=== PATIENT | male | born 1995 | race Asian ===

== ENCOUNTER 2021-12-24 21:48 | Inpatient (IN) | payer MEDICAID ==
[~2021-12-24] VITALS: Ht 152.4 cm; Wt 49.9 kg
[2021-12-24] MEDS ORDERED: IV NORMAL SALINE 500 ML BAG IV ONE (22:00)
[2021-12-24 22:18] LABS: HEMATOCRIT 36.3 % (36.7-47.1); MEAN CORPUSCULAR HEMOGLOBIN 30.7 uug (23.8-33.4); MEAN CORPUSCULAR VOLUME 90.1 fL (73.0-96.2); PLATELET COUNT (AUTO) 225 K/uL (152-348)
[2021-12-24 22:22] LABS: CARBON DIOXIDE 33 mmol/L (21-32); CHLORIDE 103 mmol/L (98-107); CREATININE 0.5 mg/dL (0.6-1.3); GLUCOSE 99 mg/dL (74-106); POTASSIUM 2.9 mmol/L (3.5-5.1); UREA NITROGEN, BLOOD 6 mg/dL (7-18)
[2021-12-24 22:36] LABS: ALANINE AMINOTRANSFERASE 110 U/L (16-63); ALKALINE PHOSPHATASE 73 U/L (50-136); ASPARTATE AMINOTRANSFERASE 70 U/L (15-37); BILIRUBIN,DIRECT 0.3 mg/dL (0.0-0.2); BILIRUBIN,TOTAL 0.8 mg/dL (0.2-1.0); TOTAL PROTEIN, SERUM 6.7 g/dL (6.4-8.2)
[2021-12-24] MEDS ORDERED: IV D5W-0.45% NS +20 KCL 1,000 ML IV ONE (23:00)
[2021-12-24] MEDS ORDERED: POLY17PO4 GT (23:37)
[2021-12-24] MEDS ORDERED: HYDR-501 GT (23:37)
[2021-12-24] MEDS ORDERED: PROM6.256 GT (23:37)
[2021-12-24] MEDS ORDERED: SUCR1ORA4 GT (23:37)
[2021-12-24] MEDS ORDERED: CLON2TAB11 GT (23:37)
[2021-12-24] MEDS ORDERED: GLYC2TAB2 GT (23:37)
[2021-12-24] MEDS ORDERED: OMEP40CA21 GT (23:37)
[2021-12-24] MEDS ORDERED: ALBU2.5V38 IH (23:37)
[2021-12-24] MEDS ORDERED: BACL20TA GT (23:37)
[2021-12-24] MEDS ORDERED: TIZA4TAB5 GT ×2 (23:37)
[2021-12-24] MEDS ORDERED: NYST15CR2 TP (23:37)
[2021-12-24] MEDS ORDERED: ACET-2154 GT (23:37)
[2021-12-24] MEDS ORDERED: LEVE500S9 GT (23:37)
[2021-12-24] MEDS ORDERED: ONDA8TAB65 GT (23:37)
[2021-12-25] MEDS ORDERED: REMEDY ESSENTIAL ZINC PASTE 113 GM TP PRN (00:30)
[2021-12-25] MEDS ORDERED: IV D5W-0.45% NS +20 KCL 1,000 ML IV ONE (00:31)
[2021-12-25] MEDS: IV NS 1000 ML 1,000 ML IV PRN ×2 (00:38→22:14)
[2021-12-25] MEDS ORDERED: MIDAZOLAM HCL 2 MG/2 ML VIAL ONE (08:43)
[2021-12-25] MEDS ORDERED: MIDAZOLAM HCL 2 MG/2 ML VIAL IV PRN (08:45)
[2021-12-25] MEDS ORDERED: PANTOPRAZOLE SODIUM 40 MG VIAL ONE (09:04)
[2021-12-25] MEDS: PANTOPRAZOLE SODIUM 40 MG VIAL IV SCH (09:09)
[2021-12-25] MEDS ORDERED: MORPHINE SULFATE 2 MG/1 ML DISP.SYRIN ONE ×2 (11:13→21:30)
[2021-12-25] MEDS: MORPHINE SULFATE 2 MG/1 ML DISP.SYRIN IV PRN ×2 (11:21→21:35)
[2021-12-25] MEDS ORDERED: LORAZEPAM 2 MG/1 ML VIAL ONE ×2 (11:23→12:55)
[2021-12-25] MEDS ORDERED: LORAZEPAM 2 MG/1 ML VIAL IV ONE (11:30)
[2021-12-25] MEDS ORDERED: BACLOFEN 20 MG TABLET PO SCH (12:45)
[2021-12-25] MEDS ORDERED: TIZANIDINE HCL 4 MG TABLET PO SCH (12:45)
[2021-12-25] MEDS ORDERED: TIZANIDINE HCL 4 MG TABLET PO PRN (12:49)
[2021-12-25] MEDS ORDERED: BACLOFEN 10 MG TABLET ONE ×2 (12:54→18:04)
[2021-12-25] MEDS: LORAZEPAM 2 MG/1 ML VIAL IV PRN ×2 (13:12→23:15)
[2021-12-25] MEDS ORDERED: BACLOFEN 20 MG TABLET GT SCH (18:00)
[2021-12-25] MEDS ORDERED: NYST15PO4 TP (18:07)
[2021-12-25] MEDS ORDERED: POTASSIUM CHLORIDE 50 ML ONE (18:29)
[2021-12-25] MEDS: POTASSIUM CHLORIDE 50 ML IV SCH ×4 (18:35→21:35)
[2021-12-25] MEDS ORDERED: POTASSIUM CHLORIDE 150 ML ONE (19:30)
[2021-12-25] MEDS ORDERED: levETIRAcetam 250 MG TABLET GT SCH (21:00)
[2021-12-25] MEDS: levETIRAcetam 500 MG/5 ML LIQUID UDC GT SCH (23:14)
[2021-12-26 00:01] VITALS: BP 139/78
[2021-12-26 01:16] VITALS: BP 120/62
[2021-12-26] MEDS: BACLOFEN 20 MG TABLET GT SCH ×5 (01:18→23:45)
[2021-12-26 05:33] VITALS: BP 136/68
[2021-12-26 07:12] LABS: HEMATOCRIT 36.9 % (36.7-47.1); MEAN CORPUSCULAR HEMOGLOBIN 31.2 uug (23.8-33.4); MEAN CORPUSCULAR VOLUME 91.6 fL (73.0-96.2); PLATELET COUNT (AUTO) 297 K/uL (152-348)
[2021-12-26 07:29] LABS: CARBON DIOXIDE 23 mmol/L (21-32); CHLORIDE 102 mmol/L (98-107); CREATINE KINASE, TOTAL 719 U/L (39-308); CREATININE 0.6 mg/dL (0.6-1.3); GLUCOSE 64 mg/dL (74-106); MAGNESIUM 2.1 mg/dL (1.8-2.4); PHOSPHOROUS 2.5 mg/dL (2.5-4.9); POTASSIUM 4.2 mmol/L (3.5-5.1); UREA NITROGEN, BLOOD 9 mg/dL (7-18)
[2021-12-26] MEDS: NYSTATIN CREAM 30 GM TUBE TP SCH ×3 (09:00→18:17)
[2021-12-26] MEDS ORDERED: NYSTATIN/TRIAMCINOLONE CREAM 15 GM TUBE TP SCH (09:00)
[2021-12-26] MEDS ORDERED: Medication Not On Formulary EA (Glycopyrrolate 1 MG) GT SCH (09:00)
[2021-12-26] MEDS: GLYCOPYRROLATE 1 MG TABLET GT SCH ×4 (10:38→18:17)
[2021-12-26] MEDS: MIRALAX 17 GM POWD.PACK GT SCH ×2 (10:39→18:15)
[2021-12-26] MEDS: PANTOPRAZOLE SODIUM 40 MG VIAL IV SCH ×2 (10:39→22:15)
[2021-12-26] MEDS: levETIRAcetam 500 MG/5 ML LIQUID UDC GT SCH ×2 (10:39→22:24)
[2021-12-26 12:21] VITALS: BP 119/72
[2021-12-26] MEDS: LORAZEPAM 1 MG TABLET GT PRN ×2 (13:33→22:02)
[2021-12-26 16:58] VITALS: BP 136/72
[2021-12-26] MEDS ORDERED: BACLOFEN 20 MG TABLET GT SCH (18:00)
[2021-12-26] MEDS: HYDROCODONE/APAP 5-325MG TABLET GT PRN (19:36)
[2021-12-26 20:00] VITALS: BP 135/83
[2021-12-26] MEDS: ONDANSETRON 4 MG/2 ML VIAL IV PRN ×2 (22:02→23:14)
[2021-12-26] MEDS: ACETAMINOPHEN 650 MG SUPP.RECT RC PRN (22:03)
[2021-12-26] MEDS ORDERED: ONDANSETRON 4 MG/2 ML VIAL IV STA (22:04)
[2021-12-26] MEDS ORDERED: MORPHINE SULFATE 2 MG/1 ML DISP.SYRIN IV STA (22:04)
[2021-12-26] MEDS ORDERED: BLOOD SUGAR DIAGNOSTIC 1 EACH STRIP VI STA (22:08)
[2021-12-26] MEDS: IV NS 1000 ML 1,000 ML IV PRN (22:30)
[2021-12-26 22:34] LABS: HEMATOCRIT 40.7 % (36.7-47.1); MEAN CORPUSCULAR VOLUME 91.7 fL (73.0-96.2); PLATELET COUNT (AUTO) 382 K/uL (152-348)
[2021-12-27 04:33] VITALS: BP 113/65
[2021-12-27] MEDS: BACLOFEN 20 MG TABLET GT SCH ×3 (05:06→17:49)
[2021-12-27] MEDS: MIRALAX 17 GM POWD.PACK GT SCH ×2 (08:49→17:50)
[2021-12-27] MEDS: levETIRAcetam 500 MG/5 ML LIQUID UDC GT SCH ×2 (08:49→20:34)
[2021-12-27] MEDS: NYSTATIN CREAM 30 GM TUBE TP SCH ×2 (08:50→17:49)
[2021-12-27] MEDS: GLYCOPYRROLATE 1 MG TABLET GT SCH ×3 (08:50→17:49)
[2021-12-27] MEDS: PANTOPRAZOLE SODIUM 40 MG VIAL IV SCH ×2 (08:50→17:49)
[2021-12-27 11:45] VITALS: BP 129/60
[2021-12-27] MEDS: IV NS 1000 ML 1,000 ML IV PRN (13:28)
[2021-12-27 16:43] VITALS: BP 107/88
[2021-12-27 20:00] VITALS: BP 109/58
[2021-12-27] MEDS: LORAZEPAM 1 MG TABLET GT PRN (20:34)
[2021-12-28] MEDS: BACLOFEN 20 MG TABLET GT SCH ×4 (00:04→17:31)
[2021-12-28] MEDS: LORAZEPAM 1 MG TABLET GT PRN ×2 (03:57→20:01)
[2021-12-28 04:00] VITALS: BP 125/68
[2021-12-28] MEDS: IV NS 1000 ML 1,000 ML IV PRN ×2 (04:07→18:56)
[2021-12-28] MEDS: TIZANIDINE HCL 4 MG TABLET GT PRN (06:27)
[2021-12-28 07:45] LABS: ALANINE AMINOTRANSFERASE 61 U/L (16-63); ALKALINE PHOSPHATASE 88 U/L (50-136); ASPARTATE AMINOTRANSFERASE 46 U/L (15-37); BILIRUBIN,TOTAL 0.7 mg/dL (0.2-1.0); CARBON DIOXIDE 28 mmol/L (21-32); CHLORIDE 101 mmol/L (98-107); CREATINE KINASE, TOTAL 763 U/L (39-308); CREATININE 0.6 mg/dL (0.6-1.3); GLUCOSE 127 mg/dL (74-106); LIPASE 155 U/L (73-393); MAGNESIUM 1.8 mg/dL (1.8-2.4); PHOSPHOROUS 2.6 mg/dL (2.5-4.9); POTASSIUM 3.9 mmol/L (3.5-5.1); TOTAL PROTEIN, SERUM 7.1 g/dL (6.4-8.2); UREA NITROGEN, BLOOD 5 mg/dL (7-18)
[2021-12-28 07:59] LABS: HEMATOCRIT 37.5 % (36.7-47.1); MEAN CORPUSCULAR HEMOGLOBIN 31.9 uug (23.8-33.4); MEAN CORPUSCULAR VOLUME 93.1 fL (73.0-96.2); PLATELET COUNT (AUTO) 366 K/uL (152-348)
[2021-12-28] MEDS: MIRALAX 17 GM POWD.PACK GT SCH ×2 (09:00→17:00)
[2021-12-28] MEDS: PANTOPRAZOLE SODIUM 40 MG VIAL IV SCH ×2 (09:29→17:30)
[2021-12-28] MEDS: NYSTATIN CREAM 30 GM TUBE TP SCH ×2 (09:29→17:31)
[2021-12-28] MEDS: GLYCOPYRROLATE 1 MG TABLET GT SCH ×3 (09:29→17:30)
[2021-12-28] MEDS: levETIRAcetam 500 MG/5 ML LIQUID UDC GT SCH ×2 (09:29→20:38)
[2021-12-28] MEDS: JEVITY 1.2 1000 ML LIQUID GT PRN (10:59)
[2021-12-28] MEDS: MORPHINE SULFATE 2 MG/1 ML DISP.SYRIN IV PRN (14:03)
[2021-12-28 16:00] VITALS: BP 101/59
[2021-12-28] MEDS: ALBUTEROL SULFATE 2.5 MG/3 ML NEBU NEB PRN (17:51)
[2021-12-28 20:03] VITALS: BP 132/69
[2021-12-28] MEDS: HYDROCODONE/APAP 5-325MG TABLET GT PRN (21:24)
[2021-12-29] MEDS: BACLOFEN 20 MG TABLET GT SCH ×4 (00:27→17:10)
[2021-12-29 04:03] VITALS: BP 135/75
[2021-12-29] MEDS: NYSTATIN CREAM 30 GM TUBE TP SCH ×2 (09:38→17:10)
[2021-12-29] MEDS: GLYCOPYRROLATE 1 MG TABLET GT SCH ×3 (09:38→17:09)
[2021-12-29] MEDS: levETIRAcetam 500 MG/5 ML LIQUID UDC GT SCH ×2 (09:38→20:41)
[2021-12-29] MEDS: MIRALAX 17 GM POWD.PACK GT SCH ×2 (09:38→17:09)
[2021-12-29] MEDS: PANTOPRAZOLE SODIUM 40 MG VIAL IV SCH ×2 (09:38→17:09)
[2021-12-29 11:54] VITALS: BP 149/94
[2021-12-29] MEDS: LORAZEPAM 1 MG TABLET GT PRN ×2 (12:00→20:16)
[2021-12-29] MEDS ORDERED: IOHEXOL 300MG/ML 100 ML INFUS..BTL ONE (15:30)
[2021-12-29] MEDS ORDERED: SWABABLE VALVE TRANSFER SET EA MC ONE (15:30)
[2021-12-29] MEDS ORDERED: IV NORMAL SALINE 250 ML BAG ONE (15:30)
[2021-12-29] MEDS ORDERED: BACL20TA GT (16:32)
[2021-12-29] MEDS ORDERED: METO25TA6 PO (16:32)
[2021-12-29] MEDS: METOPROLOL TARTRATE 25 MG TABLET PO SCH ×2 (17:16→23:00)
[2021-12-29 17:25] VITALS: BP 132/79
[2021-12-29] MEDS: HYDROCODONE/APAP 5-325MG TABLET GT PRN ×2 (18:12→22:29)
[2021-12-29] MEDS: ACETAMINOPHEN 650 MG SUPP.RECT RC PRN (18:43)
[2021-12-29 20:09] VITALS: BP 105/59
[2021-12-29] MEDS: PIPERACILLIN SODIUM/TAZOBACTAM 3.375 G in IV DEXTROSE 5% 50 ML IV SCH (21:00)
[2021-12-29] MEDS ORDERED: PIPERACILLIN/TAZOBACTAM/D5W 50 ML IV ONE ×2 (21:57→21:58)
[2021-12-30] VITALS (13 sets, daily range): BP systolic 57–140; BP diastolic 39–106
[2021-12-30] MEDS: ACETAMINOPHEN 650 MG SUPP.RECT RC PRN ×4 (00:47→21:18)
[2021-12-30] MEDS: BACLOFEN 20 MG TABLET GT SCH ×4 (00:47→16:48)
[2021-12-30] MEDS: MORPHINE SULFATE 2 MG/1 ML DISP.SYRIN IV PRN (02:50)
[2021-12-30] MEDS: PIPERACILLIN SODIUM/TAZOBACTAM 3.375 G in IV DEXTROSE 5% 50 ML IV SCH (03:57)
[2021-12-30] MEDS: IV NS 1000 ML 1,000 ML IV PRN (04:58)
[2021-12-30] MEDS: LORAZEPAM 1 MG TABLET GT PRN (04:59)
[2021-12-30 06:57] LABS: HEMATOCRIT 37.5 % (36.7-47.1); MEAN CORPUSCULAR HEMOGLOBIN 31.8 uug (23.8-33.4); MEAN CORPUSCULAR VOLUME 93.3 fL (73.0-96.2); PLATELET COUNT (AUTO) 448 K/uL (152-348)
[2021-12-30 07:13] LABS: BILIRUBIN,TOTAL 1.2 mg/dL (0.2-1.0); CREATININE 1.1 mg/dL (0.6-1.3); MAGNESIUM 1.8 mg/dL (1.8-2.4); PHOSPHOROUS 3.7 mg/dL (2.5-4.9); POTASSIUM 3.9 mmol/L (3.5-5.1); TOTAL PROTEIN, SERUM 7.6 g/dL (6.4-8.2)
[2021-12-30] MEDS: ALBUTEROL SULFATE 2.5 MG/3 ML NEBU NEB PRN (07:49)
[2021-12-30] MEDS ORDERED: PIPERACILLIN SODIUM/TAZOBACTAM 3.375 G in IV DEXTROSE 5% 50 ML IV SCH (09:00)
[2021-12-30] MEDS: METOPROLOL TARTRATE 25 MG TABLET PO SCH ×2 (09:00→21:00)
[2021-12-30] MEDS ORDERED: PIPERACILLIN SODIUM/TAZOBACTAM 3.375 G in IV DEXTROSE 5% 100 ML IV SCH (09:00)
[2021-12-30] MEDS: levETIRAcetam 500 MG/5 ML LIQUID UDC GT SCH ×2 (09:52→21:18)
[2021-12-30] MEDS: MIRALAX 17 GM POWD.PACK GT SCH ×2 (09:53→16:48)
[2021-12-30] MEDS: NYSTATIN CREAM 30 GM TUBE TP SCH ×2 (09:53→16:49)
[2021-12-30] MEDS: PANTOPRAZOLE SODIUM 40 MG VIAL IV SCH ×2 (09:53→16:48)
[2021-12-30] MEDS: GLYCOPYRROLATE 1 MG TABLET GT SCH ×3 (09:53→16:48)
[2021-12-30] MEDS ORDERED: IV NS 1000 ML 1,000 ML IV ONE ×3 (10:00→14:15)
[2021-12-30] MEDS ORDERED: ALBUTEROL SULFATE 2.5 MG/3 ML NEBU NEB PRN (10:30)
[2021-12-30 11:04] LABS: ABG BASE EXCESS -3.5 mmol/L; ABG HCO3 18.7 mmol/L; ABG PCO2 26.9 mmHg (35.0-45.0); ABG PH 7.459 (7.350-7.450); ABG PO2 96.8 mmHg (75.0-100.0); ABG SITE RIGHT RADIAL; VENT MODE Nasal Cannula
[2021-12-30] MEDS: DOXYCYCLINE HYCLATE IV 100 MG in IV DEXTROSE 5% 100 ML IV SCH ×2 (12:01→22:00)
[2021-12-30] MEDS: IBUPROFEN 400 MG TABLET PO PRN ×2 (12:01→17:50)
[2021-12-30] MEDS: PIPERACILLIN SODIUM/TAZOBACTAM 3.375 G in IV DEXTROSE 5% 100 ML IV SCH ×2 (12:03→21:19)
[2021-12-30] MEDS ORDERED: NOREPINEPHRINE BITARTRATE 8 MG in IV NORMAL SALINE 242 ML IV PRN (14:15)
[2021-12-30 14:38] LABS: *BILIRUBIN,URIN NEGATIVE (NEGATIVE); *BLOOD, URINE 2+ (NEGATIVE); *CLARITY,URINE CLEAR (CLEAR); *COLOR,URINE YELLOW (YELLOW); *KETONES,URINE 3+ (NEGATIVE); *UROBILINOGEN,URINE 0.2 E.U./dl (NORMAL); LEUKOCYTE ESTERASE ,URINE NEGATIVE (NEGATIVE); NITRITE, URINE NEGATIVE (NEGATIVE); PH,URINE 5.5 (5.0-8.0); UGLUCOSE NEGATIVE (NEGATIVE)
[2021-12-30] MEDS ORDERED: MORPHINE SULFATE 2 MG/1 ML DISP.SYRIN ONE (20:40)
[2021-12-30] MEDS ORDERED: ACETAMINOPHEN 650 MG SUPP.RECT RC ONE (21:16)
[2021-12-30] MEDS ORDERED: levETIRAcetam 500 MG/5 ML LIQUID UDC ONE (21:16)
[2021-12-30] MEDS ORDERED: PHENYLEPHRINE 10 MG/1 ML VIAL ONE (21:41)
[2021-12-30] MEDS: PHENYLEPHRINE IV 50 MG in IV NORMAL SALINE 245 ML IV PRN (22:09)
[2021-12-30 23:32] LABS: BACTERIA,URINE FEW /HPF (NONE SEEN); SQUAMOUS EPITHELIAL CELL,UR FEW /HPF (NONE SEEN); WBC,URINE 0-3 /HPF (0-3)
[2021-12-31] VITALS (89 sets, daily range): BP systolic 70–199; BP diastolic 33–128
[2021-12-31] MEDS: NOREPINEPHRINE BITARTRATE 8 MG in IV NORMAL SALINE 242 ML IV PRN ×2 (00:10→03:51)
[2021-12-31] MEDS ORDERED: LORAZEPAM 1 MG TABLET ONE (00:13)
[2021-12-31] MEDS ORDERED: IBUPROFEN 400 MG TABLET ONE ×4 (00:13→22:59)
[2021-12-31] MEDS: IBUPROFEN 400 MG TABLET PO PRN ×4 (00:15→23:00)
[2021-12-31] MEDS: LORAZEPAM 1 MG TABLET GT PRN (00:15)
[2021-12-31] MEDS: IV NS 1000 ML 1,000 ML IV PRN ×2 (00:16→14:33)
[2021-12-31] MEDS ORDERED: BACLOFEN 10 MG TABLET ONE ×4 (01:23→17:39)
[2021-12-31] MEDS ORDERED: ACETAMINOPHEN 650 MG SUPP.RECT RC ONE ×3 (03:13→19:50)
[2021-12-31] MEDS: ACETAMINOPHEN 650 MG SUPP.RECT RC PRN ×3 (03:16→19:53)
[2021-12-31] MEDS ORDERED: PHENYLEPHRINE 10 MG/1 ML VIAL ONE (03:35)
[2021-12-31] MEDS: PHENYLEPHRINE IV 50 MG in IV NORMAL SALINE 245 ML IV PRN (03:51)
[2021-12-31] MEDS: PIPERACILLIN SODIUM/TAZOBACTAM 3.375 G in IV DEXTROSE 5% 100 ML IV SCH ×3 (04:45→20:27)
[2021-12-31] MEDS ORDERED: MORPHINE SULFATE 2 MG/1 ML DISP.SYRIN ONE (05:46)
[2021-12-31] MEDS: MORPHINE SULFATE 2 MG/1 ML DISP.SYRIN IV PRN (05:52)
[2021-12-31] MEDS: BACLOFEN 20 MG TABLET GT SCH ×5 (06:00→23:01)
[2021-12-31 07:16] LABS: HEMATOCRIT 34.1 % (36.7-47.1); MEAN CORPUSCULAR HEMOGLOBIN 31.8 uug (23.8-33.4); MEAN CORPUSCULAR VOLUME 93.7 fL (73.0-96.2); PLATELET COUNT (AUTO) 412 K/uL (152-348)
[2021-12-31 07:56] LABS: CREATININE 0.9 mg/dL (0.6-1.3); MAGNESIUM 1.6 mg/dL (1.8-2.4); PHOSPHOROUS 2.8 mg/dL (2.5-4.9); POTASSIUM 3.3 mmol/L (3.5-5.1)
[2021-12-31] MEDS: MIRALAX 17 GM POWD.PACK GT SCH ×2 (09:00→17:43)
[2021-12-31] MEDS: METOPROLOL TARTRATE 25 MG TABLET PO SCH ×2 (09:00→20:27)
[2021-12-31] MEDS ORDERED: NOREPINEPHRINE BITARTRATE 32 MG in IV NORMAL SALINE 218 ML IV PRN (09:05)
[2021-12-31] MEDS ORDERED: POTASSIUM CHLORIDE 20 MEQ POWDER PACKET GT ONE (09:15)
[2021-12-31] MEDS ORDERED: SODIUM BICARBONATE 8.4% 50 MEQ/50 ML DISP.SYRIN IV ONE ×2 (09:30→09:33)
[2021-12-31] MEDS ORDERED: ENOXAPARIN SODIUM 40 MG/0.4 ML DISP.SYRIN SQ ONE (09:32)
[2021-12-31] MEDS ORDERED: PANTOPRAZOLE SODIUM 40 MG VIAL ONE ×2 (09:32→17:35)
[2021-12-31] MEDS ORDERED: levETIRAcetam 500 MG/5 ML LIQUID UDC ONE ×2 (09:32→20:34)
[2021-12-31] MEDS ORDERED: POTASSIUM CHLORIDE 20 MEQ POWDER PACKET ONE (09:33)
[2021-12-31] MEDS ORDERED: MAGNESIUM SULFATE/D5W 200 ML ONE (09:33)
[2021-12-31] MEDS ORDERED: LORAZEPAM 2 MG/1 ML VIAL ONE ×2 (09:34→19:51)
[2021-12-31] MEDS: LORAZEPAM 2 MG/1 ML VIAL IV PRN ×2 (09:41→19:53)
[2021-12-31] MEDS: MAGNESIUM SULFATE/D5W 100 ML IV SCH ×2 (09:41→11:12)
[2021-12-31] MEDS: GLYCOPYRROLATE 1 MG TABLET GT SCH ×3 (09:41→17:43)
[2021-12-31] MEDS: levETIRAcetam 500 MG/5 ML LIQUID UDC GT SCH ×2 (09:41→20:44)
[2021-12-31] MEDS: PANTOPRAZOLE SODIUM 40 MG VIAL IV SCH ×2 (09:41→17:43)
[2021-12-31] MEDS: ENOXAPARIN SODIUM 40 MG/0.4 ML DISP.SYRIN SQ SCH (09:44)
[2021-12-31] MEDS: DOXYCYCLINE HYCLATE IV 100 MG in IV DEXTROSE 5% 100 ML IV SCH ×2 (09:44→21:22)
[2021-12-31] MEDS: PHENYLEPHRINE IV 100 MG in IV NORMAL SALINE 240 ML IV PRN (11:16)
[2021-12-31] MEDS: NYSTATIN CREAM 30 GM TUBE TP SCH ×2 (12:01→17:43)
[2021-12-31] MEDS ORDERED: HYDROCODONE/APAP 5-325MG TABLET ONE ×2 (12:56→19:50)
[2021-12-31] MEDS: HYDROCODONE/APAP 5-325MG TABLET GT PRN ×2 (12:58→19:53)
[2021-12-31] MEDS: TIZANIDINE HCL 4 MG TABLET GT PRN ×2 (12:58→19:57)
[2021-12-31] MEDS ORDERED: MIRALAX 17 GM POWD.PACK ONE (17:35)
[2021-12-31] MEDS ORDERED: TIZANIDINE HCL 4 MG TABLET ONE (19:56)
[2021-12-31] MEDS ORDERED: ALBUTEROL SULFATE 2.5 MG/3 ML NEBU ONE (21:22)
[2021-12-31] MEDS: ALBUTEROL SULFATE 2.5 MG/3 ML NEBU NEB PRN (21:49)
[2022-01-01] VITALS (80 sets, daily range): BP systolic 77–136; BP diastolic 28–94
[2022-01-01] MEDS: PHENYLEPHRINE IV 100 MG in IV NORMAL SALINE 240 ML IV PRN (02:01)
[2022-01-01] MEDS: IV NS 1000 ML 1,000 ML IV PRN ×2 (02:58→21:26)
[2022-01-01] MEDS: PIPERACILLIN SODIUM/TAZOBACTAM 3.375 G in IV DEXTROSE 5% 100 ML IV SCH ×3 (03:03→20:06)
[2022-01-01] MEDS ORDERED: ALBUTEROL SULFATE 2.5 MG/3 ML NEBU ONE (03:47)
[2022-01-01] MEDS ORDERED: LORAZEPAM 2 MG/1 ML VIAL ONE ×2 (04:05→22:46)
[2022-01-01] MEDS ORDERED: HYDROCODONE/APAP 5-325MG TABLET ONE ×3 (04:06→19:04)
[2022-01-01] MEDS: HYDROCODONE/APAP 5-325MG TABLET GT PRN ×3 (04:08→19:10)
[2022-01-01] MEDS: LORAZEPAM 2 MG/1 ML VIAL IV PRN ×2 (04:08→22:51)
[2022-01-01] MEDS: ALBUTEROL SULFATE 2.5 MG/3 ML NEBU NEB PRN (04:39)
[2022-01-01] MEDS: BACLOFEN 20 MG TABLET GT SCH ×3 (05:09→17:31)
[2022-01-01 07:33] LABS: HEMATOCRIT 38.1 % (36.7-47.1); MEAN CORPUSCULAR HEMOGLOBIN 31.6 uug (23.8-33.4); MEAN CORPUSCULAR VOLUME 94.3 fL (73.0-96.2); PLATELET COUNT (AUTO) 383 K/uL (152-348)
[2022-01-01 07:53] LABS: CARBON DIOXIDE 26 mmol/L (21-32); CHLORIDE 104 mmol/L (98-107); CREATINE KINASE, TOTAL 4662 U/L (39-308); CREATININE 0.7 mg/dL (0.6-1.3); GLUCOSE 90 mg/dL (74-106); MAGNESIUM 2.1 mg/dL (1.8-2.4); POTASSIUM 3.6 mmol/L (3.5-5.1); UREA NITROGEN, BLOOD 3 mg/dL (7-18)
[2022-01-01] MEDS ORDERED: MIRALAX 17 GM POWD.PACK ONE (08:55)
[2022-01-01] MEDS ORDERED: ENOXAPARIN SODIUM 40 MG/0.4 ML DISP.SYRIN SQ ONE (08:55)
[2022-01-01] MEDS ORDERED: levETIRAcetam 500 MG/5 ML LIQUID UDC ONE ×3 (08:56→20:04)
[2022-01-01] MEDS ORDERED: PANTOPRAZOLE SODIUM 40 MG VIAL ONE ×2 (08:56→16:39)
[2022-01-01] MEDS: METOPROLOL TARTRATE 25 MG TABLET PO SCH ×3 (09:00→20:07)
[2022-01-01] MEDS: MIRALAX 17 GM POWD.PACK GT SCH ×2 (09:05→12:48)
[2022-01-01] MEDS: levETIRAcetam 500 MG/5 ML LIQUID UDC GT SCH ×2 (09:05→20:06)
[2022-01-01] MEDS: NYSTATIN CREAM 30 GM TUBE TP SCH ×2 (09:09→17:32)
[2022-01-01] MEDS: PANTOPRAZOLE SODIUM 40 MG VIAL IV SCH ×2 (09:12→17:32)
[2022-01-01] MEDS: GLYCOPYRROLATE 1 MG TABLET GT SCH ×3 (09:12→17:31)
[2022-01-01] MEDS: ENOXAPARIN SODIUM 40 MG/0.4 ML DISP.SYRIN SQ SCH (09:28)
[2022-01-01] MEDS ORDERED: LORAZEPAM 1 MG TABLET ONE ×2 (09:37→17:35)
[2022-01-01] MEDS: LORAZEPAM 1 MG TABLET GT PRN ×2 (09:39→17:35)
[2022-01-01] MEDS: DOXYCYCLINE HYCLATE IV 100 MG in IV DEXTROSE 5% 100 ML IV SCH ×2 (10:40→21:06)
[2022-01-01] MEDS ORDERED: BACLOFEN 10 MG TABLET ONE (12:11)
[2022-01-01] MEDS ORDERED: NEUTRA PHOS PACKET GT ONE (16:00)
[2022-01-01] MEDS ORDERED: ACETAMINOPHEN 650 MG SUPP.RECT RC ONE (22:14)
[2022-01-01] MEDS ORDERED: IBUPROFEN 400 MG TABLET ONE (22:14)
[2022-01-01] MEDS: IBUPROFEN 400 MG TABLET PO PRN (22:15)
[2022-01-01] MEDS: ACETAMINOPHEN 650 MG SUPP.RECT RC PRN (22:15)
[2022-01-02] VITALS (10 sets, daily range): BP systolic 102–143; BP diastolic 56–87
[2022-01-02] MEDS: BACLOFEN 20 MG TABLET GT SCH ×4 (00:02→17:32)
[2022-01-02] MEDS: PIPERACILLIN SODIUM/TAZOBACTAM 3.375 G in IV DEXTROSE 5% 100 ML IV SCH ×3 (04:33→20:21)
[2022-01-02] MEDS ORDERED: LORAZEPAM 2 MG/1 ML VIAL ONE (04:50)
[2022-01-02] MEDS: LORAZEPAM 2 MG/1 ML VIAL IV PRN ×2 (04:54→20:04)
[2022-01-02 05:15] LABS: ALANINE AMINOTRANSFERASE 89 U/L (16-63); ALKALINE PHOSPHATASE 52 U/L (50-136); ASPARTATE AMINOTRANSFERASE 147 U/L (15-37); BILIRUBIN,DIRECT 0.3 mg/dL (0.0-0.2); BILIRUBIN,TOTAL 1.2 mg/dL (0.2-1.0); CARBON DIOXIDE 34 mmol/L (21-32); CHLORIDE 102 mmol/L (98-107); CREATINE KINASE, TOTAL 2372 U/L (39-308); CREATININE 0.7 mg/dL (0.6-1.3); GLUCOSE 87 mg/dL (74-106); MAGNESIUM 1.9 mg/dL (1.8-2.4); PHOSPHOROUS 2.4 mg/dL (2.5-4.9); UREA NITROGEN, BLOOD 3 mg/dL (7-18)
[2022-01-02 06:37] LABS: HEMATOCRIT 34.2 % (36.7-47.1); MEAN CORPUSCULAR HEMOGLOBIN 31.7 uug (23.8-33.4); MEAN CORPUSCULAR VOLUME 93.1 fL (73.0-96.2); PLATELET COUNT (AUTO) 253 K/uL (152-348)
[2022-01-02] MEDS: ENOXAPARIN SODIUM 40 MG/0.4 ML DISP.SYRIN SQ SCH (09:00)
[2022-01-02] MEDS: GLYCOPYRROLATE 1 MG TABLET GT SCH ×3 (09:00→17:32)
[2022-01-02] MEDS: levETIRAcetam 500 MG/5 ML LIQUID UDC GT SCH ×2 (09:00→20:02)
[2022-01-02] MEDS: PANTOPRAZOLE SODIUM 40 MG VIAL IV SCH ×2 (09:00→17:32)
[2022-01-02] MEDS: NYSTATIN CREAM 30 GM TUBE TP SCH ×2 (09:00→17:00)
[2022-01-02] MEDS: MIRALAX 17 GM POWD.PACK GT SCH ×2 (09:00→17:00)
[2022-01-02] MEDS: METOPROLOL TARTRATE 25 MG TABLET PO SCH ×2 (09:00→20:02)
[2022-01-02] MEDS ORDERED: levETIRAcetam 500 MG/5 ML LIQUID UDC ONE (09:06)
[2022-01-02] MEDS ORDERED: PANTOPRAZOLE SODIUM 40 MG VIAL ONE (09:07)
[2022-01-02] MEDS ORDERED: MIRALAX 17 GM POWD.PACK ONE (09:07)
[2022-01-02] MEDS ORDERED: ENOXAPARIN SODIUM 40 MG/0.4 ML DISP.SYRIN SQ ONE (09:08)
[2022-01-02] MEDS ORDERED: POTASSIUM CHLORIDE 20 MEQ POWDER PACKET GT ONE ×2 (09:15→12:00)
[2022-01-02] MEDS ORDERED: BACLOFEN 10 MG TABLET ONE (09:55)
[2022-01-02] MEDS ORDERED: PIPERACILLIN/TAZOBACTAM/D5W 50 ML IV ONE (09:55)
[2022-01-02] MEDS ORDERED: LORAZEPAM 1 MG TABLET ONE (09:56)
[2022-01-02] MEDS: DOXYCYCLINE HYCLATE IV 100 MG in IV DEXTROSE 5% 100 ML IV SCH ×2 (10:29→22:38)
[2022-01-02] MEDS ORDERED: POTASSIUM CHLORIDE 20 MEQ POWDER PACKET ONE (10:36)
[2022-01-02] MEDS: LORAZEPAM 1 MG TABLET GT PRN (10:58)
[2022-01-02] MEDS: JEVITY 1.2 1000 ML LIQUID GT PRN (10:59)
[2022-01-02] MEDS ORDERED: NEUTRA PHOS PACKET GT ONE (16:00)
[2022-01-03 00:19] LABS: ABG BASE EXCESS -10.4 mmol/L; ABG HCO3 16.2 mmol/L; ABG PCO2 38.4 mmHg (35.0-45.0); ABG PH 7.243 (7.350-7.450); ABG PO2 91.2 mmHg (75.0-100.0); ABG SITE RIGHT RADIAL; ABG TOTAL HEMOGLOBIN 12.6 G/dL (13.5-18.0); COHb 0.3 % (0.5-1.5); MetHb 0.3 % (0.0-1.5); O2Hb 95.8 % (94.0-97.0); VENT MODE Nasal Cannula
[2022-01-03 00:21] VITALS: BP 112/65
[2022-01-03] MEDS: BACLOFEN 20 MG TABLET GT SCH ×5 (00:32→23:57)
[2022-01-03] MEDS: ACETAMINOPHEN 650 MG SUPP.RECT RC PRN (01:41)
[2022-01-03] MEDS: PIPERACILLIN SODIUM/TAZOBACTAM 3.375 G in IV DEXTROSE 5% 100 ML IV SCH ×3 (03:43→20:11)
[2022-01-03 04:45] VITALS: BP 122/68
[2022-01-03 07:47] LABS: CARBON DIOXIDE 38 mmol/L (21-32); CHLORIDE 101 mmol/L (98-107); CREATININE 0.5 mg/dL (0.6-1.3); GLUCOSE 149 mg/dL (74-106); UREA NITROGEN, BLOOD 4 mg/dL (7-18)
[2022-01-03 08:01] LABS: POTASSIUM 2.8 mmol/L (3.5-5.1)
[2022-01-03] MEDS ORDERED: POTASSIUM CHLORIDE 20 MEQ POWDER PACKET GT ONE (08:30)
[2022-01-03] MEDS: MIRALAX 17 GM POWD.PACK GT SCH ×2 (09:00→15:51)
[2022-01-03] MEDS: PANTOPRAZOLE SODIUM 40 MG VIAL IV SCH (09:25)
[2022-01-03] MEDS: METOPROLOL TARTRATE 25 MG TABLET PO SCH ×2 (09:26→20:12)
[2022-01-03] MEDS: GLYCOPYRROLATE 1 MG TABLET GT SCH ×3 (09:26→16:13)
[2022-01-03] MEDS: levETIRAcetam 500 MG/5 ML LIQUID UDC GT SCH ×2 (09:26→20:12)
[2022-01-03] MEDS: NYSTATIN CREAM 30 GM TUBE TP SCH ×2 (09:27→15:51)
[2022-01-03] MEDS: ENOXAPARIN SODIUM 40 MG/0.4 ML DISP.SYRIN SQ SCH (09:28)
[2022-01-03] MEDS: DOXYCYCLINE HYCLATE IV 100 MG in IV DEXTROSE 5% 100 ML IV SCH ×2 (09:30→21:05)
[2022-01-03 11:14] VITALS: BP 116/74
[2022-01-03] MEDS: JEVITY 1.2 1000 ML LIQUID GT PRN (12:14)
[2022-01-03 15:06] VITALS: BP 133/83
[2022-01-03] MEDS: LORAZEPAM 1 MG TABLET GT PRN (16:13)
[2022-01-03] MEDS: PANTOPRAZOLE ORAL SUSPENSION 40 MG SUSPDR.PKT GT SCH (17:16)
[2022-01-03] MEDS: IV NS 1000 ML 1,000 ML IV PRN (17:18)
[2022-01-03 20:00] VITALS: BP 119/68
[2022-01-03 20:18] VITALS: BP 119/68
[2022-01-03] MEDS: LORAZEPAM 2 MG/1 ML VIAL IV PRN (23:57)
[2022-01-04 00:19] VITALS: BP 155/74
[2022-01-04] MEDS: PIPERACILLIN SODIUM/TAZOBACTAM 3.375 G in IV DEXTROSE 5% 100 ML IV SCH ×3 (03:30→20:49)
[2022-01-04 04:00] VITALS: BP 115/84
[2022-01-04 04:18] VITALS: BP 115/84
[2022-01-04] MEDS: BACLOFEN 20 MG TABLET GT SCH ×4 (05:19→23:32)
[2022-01-04] MEDS: PANTOPRAZOLE ORAL SUSPENSION 40 MG SUSPDR.PKT GT SCH ×2 (05:20→17:47)
[2022-01-04] MEDS: IV NS 1000 ML 1,000 ML IV PRN (05:31)
[2022-01-04] MEDS: JEVITY 1.2 1000 ML LIQUID GT PRN ×2 (05:36→15:53)
[2022-01-04] MEDS: HYDROCODONE/APAP 5-325MG TABLET GT PRN ×3 (07:19→20:50)
[2022-01-04] MEDS: LORAZEPAM 1 MG TABLET GT PRN ×2 (07:19→15:59)
[2022-01-04 08:27] LABS: CARBON DIOXIDE 34 mmol/L (21-32); CHLORIDE 102 mmol/L (98-107); CREATININE 0.6 mg/dL (0.6-1.3); GLUCOSE 110 mg/dL (74-106); POTASSIUM 3.5 mmol/L (3.5-5.1); UREA NITROGEN, BLOOD 7 mg/dL (7-18)
[2022-01-04] MEDS: MIRALAX 17 GM POWD.PACK GT SCH ×2 (09:00→15:45)
[2022-01-04] MEDS: levETIRAcetam 500 MG/5 ML LIQUID UDC GT SCH ×2 (09:01→20:50)
[2022-01-04] MEDS: GLYCOPYRROLATE 1 MG TABLET GT SCH ×3 (09:02→15:59)
[2022-01-04] MEDS: ENOXAPARIN SODIUM 40 MG/0.4 ML DISP.SYRIN SQ SCH (09:02)
[2022-01-04] MEDS: NYSTATIN CREAM 30 GM TUBE TP SCH ×2 (09:02→15:46)
[2022-01-04] MEDS: METOPROLOL TARTRATE 25 MG TABLET PO SCH ×2 (09:03→20:50)
[2022-01-04] MEDS: DOXYCYCLINE HYCLATE IV 100 MG in IV DEXTROSE 5% 100 ML IV SCH ×2 (09:06→22:07)
[2022-01-04 11:37] VITALS: BP 112/71
[2022-01-04 15:39] VITALS: BP 111/66
[2022-01-04 20:20] VITALS: BP 122/69
[2022-01-04] MEDS: MORPHINE SULFATE 2 MG/1 ML DISP.SYRIN IV PRN (20:49)
[2022-01-04] MEDS: TIZANIDINE HCL 4 MG TABLET GT PRN (20:51)
[2022-01-04] MEDS: LORAZEPAM 2 MG/1 ML VIAL IV PRN (23:32)
[2022-01-05] MEDS: IV NS 1000 ML 1,000 ML IV PRN (01:18)
[2022-01-05] MEDS: IBUPROFEN 400 MG TABLET PO PRN (02:25)
[2022-01-05] MEDS: LORAZEPAM 1 MG TABLET GT PRN (02:25)
[2022-01-05] MEDS: PIPERACILLIN SODIUM/TAZOBACTAM 3.375 G in IV DEXTROSE 5% 100 ML IV SCH ×3 (04:05→19:52)
[2022-01-05 04:26] VITALS: BP 118/60
[2022-01-05] MEDS: BACLOFEN 20 MG TABLET GT SCH ×4 (05:38→23:13)
[2022-01-05] MEDS: PANTOPRAZOLE ORAL SUSPENSION 40 MG SUSPDR.PKT GT SCH ×2 (05:38→17:41)
[2022-01-05] MEDS: METOPROLOL TARTRATE 25 MG TABLET PO SCH ×2 (08:55→20:23)
[2022-01-05] MEDS: MIRALAX 17 GM POWD.PACK GT SCH ×2 (08:55→17:37)
[2022-01-05] MEDS: levETIRAcetam 500 MG/5 ML LIQUID UDC GT SCH ×2 (08:55→20:22)
[2022-01-05] MEDS: GLYCOPYRROLATE 1 MG TABLET GT SCH ×3 (08:55→17:37)
[2022-01-05] MEDS: ENOXAPARIN SODIUM 40 MG/0.4 ML DISP.SYRIN SQ SCH (08:57)
[2022-01-05] MEDS: NYSTATIN CREAM 30 GM TUBE TP SCH ×2 (09:00→17:38)
[2022-01-05] MEDS: DOXYCYCLINE HYCLATE IV 100 MG in IV DEXTROSE 5% 100 ML IV SCH ×2 (09:36→21:09)
[2022-01-05 11:31] VITALS: BP 137/77
[2022-01-05] MEDS: LORAZEPAM 2 MG/1 ML VIAL IV PRN ×3 (11:31→19:51)
[2022-01-05] MEDS ORDERED: IV NORMAL SALINE 500 ML IV ONE ×2 (11:45→11:55)
[2022-01-05] MEDS: ACETAMINOPHEN 650 MG SUPP.RECT RC PRN (11:52)
[2022-01-05] MEDS: JEVITY 1.2 1000 ML LIQUID GT PRN (11:52)
[2022-01-05] MEDS: HYDROCODONE/APAP 5-325MG TABLET GT PRN (15:28)
[2022-01-05] MEDS: TIZANIDINE HCL 4 MG TABLET GT PRN (15:29)
[2022-01-05 15:42] VITALS: BP 126/78
[2022-01-05] MEDS: ALBUTEROL SULFATE 2.5 MG/3 ML NEBU NEB PRN (19:43)
[2022-01-05 20:27] VITALS: BP 127/58
[2022-01-06] MEDS: PIPERACILLIN SODIUM/TAZOBACTAM 3.375 G in IV DEXTROSE 5% 100 ML IV SCH ×2 (03:07→12:20)
[2022-01-06] MEDS: LORAZEPAM 2 MG/1 ML VIAL IV PRN ×2 (03:42→11:55)
[2022-01-06] MEDS: JEVITY 1.2 1000 ML LIQUID GT PRN (03:50)
[2022-01-06] MEDS: IV NS 1000 ML 1,000 ML IV PRN (03:55)
[2022-01-06 04:40] VITALS: BP 146/83
[2022-01-06] MEDS: PANTOPRAZOLE ORAL SUSPENSION 40 MG SUSPDR.PKT GT SCH (05:11)
[2022-01-06] MEDS: BACLOFEN 20 MG TABLET GT SCH ×2 (05:11→11:52)
[2022-01-06] MEDS: MIRALAX 17 GM POWD.PACK GT SCH (08:14)
[2022-01-06] MEDS: levETIRAcetam 500 MG/5 ML LIQUID UDC GT SCH (08:14)
[2022-01-06] MEDS: ENOXAPARIN SODIUM 40 MG/0.4 ML DISP.SYRIN SQ SCH (08:15)
[2022-01-06] MEDS: GLYCOPYRROLATE 1 MG TABLET GT SCH ×3 (08:33→16:49)
[2022-01-06] MEDS: METOPROLOL TARTRATE 25 MG TABLET PO SCH (08:33)
[2022-01-06] MEDS: NYSTATIN CREAM 30 GM TUBE TP SCH (09:40)
[2022-01-06] MEDS: DOXYCYCLINE HYCLATE IV 100 MG in IV DEXTROSE 5% 100 ML IV SCH (10:28)
[2022-01-06 11:33] VITALS: BP 123/76
[2022-01-06 16:00] VITALS: BP 119/80
[2022-01-06] MEDS: ACETAMINOPHEN 650 MG SUPP.RECT RC PRN (16:31)
[2022-01-06] MEDS ORDERED: LORAZEPAM 2 MG/1 ML VIAL ONE ×2 (18:00→18:15)
[2022-01-08] MEDS ORDERED: CEFEPIME HCL 1 G VIAL ONE (22:50)
[2022-01-12] MEDS ORDERED: LACT-209 GT (09:03)
[2022-01-12] MEDS ORDERED: METR500T GT (09:03)
== END 2022-01-06 17:05 | DRG 720 ==
LOC: ER 21:52 → TRANSITION 12-25 00:35 → TELE3 12-25 21:46 → MEDSURG3 12-26 09:26 → TELE-TD3 12-30 08:05 → TRANSITION 12-30 18:55 → TELE3 01-02 15:37 → MEDSURG3 01-04 09:30
PROVIDERS: ADMIT Internal Medicine; ATTEND Internal Medicine
PROC: B546ZZA Ultrasonography of Right Subclavian Vein, Guidance (ICD-10-PCS; principal; 2021-12-26)
PROC: 05H533Z Insertion of Infusion Device into Right Subclavian Vein, Percutaneous Approach (ICD-10-PCS; principal; 2021-12-26)
PROC: 05H533Z Insertion of Infusion Device into Right Subclavian Vein, Percutaneous Approach (ICD-10-PCS; 2021-12-30)
PROC: B546ZZA Ultrasonography of Right Subclavian Vein, Guidance (ICD-10-PCS; 2021-12-30)
DX: A41.9 Sepsis, unspecified organism (principal); J96.01 Acute respiratory failure with hypoxia; R65.21 Severe sepsis with septic shock; J69.0 Pneumonitis due to inhalation of food and vomit; G93.40 Encephalopathy, unspecified; N17.9 Acute kidney failure, unspecified; D64.9 Anemia, unspecified; B36.9 Superficial mycosis, unspecified; R53.2 Functional quadriplegia; E87.6 Hypokalemia; I10 Essential (primary) hypertension; M62.82 Rhabdomyolysis; Z93.1 Gastrostomy status; G40.909 Epilepsy, unspecified, not intractable, without status epilepticus; R74.01 Elevation of levels of liver transaminase levels; K21.9 Gastro-esophageal reflux disease without esophagitis; M24.571 Contracture, right ankle; M24.572 Contracture, left ankle; R13.10 Dysphagia, unspecified; Z66 Do not resuscitate; Z88.1 Allergy status to other antibiotic agents; K44.9 Diaphragmatic hernia without obstruction or gangrene
CPT/HCPCS: 36415; 36600; 70450; 71045; 71275; 83605; 83690; 83735; 84100; 84484; 85025; 85730; 87040; 87070; 87086; 93005; 94640; 94664; A4663; C9113; G0378; J0692; J1650; J2060; J2250; J2270; J2370; J2405; J2543; J3475; J3480; J3490; J7040; J7050; Q9967

== ENCOUNTER 2022-01-06 18:03 | Inpatient (IN) | payer MEDICAID ==
[~2022-01-06] VITALS: Ht 152.4 cm; Wt 49.9 kg
[~2022-01-06 18:03] MED LIST: ACET-2154 GT; ALBU2.5V38 IH; BACL20TA GT; CLON2TAB11 GT; GLYC2TAB2 GT; HYDR-501 GT; LEVE500S9 GT; METO25TA6 PO; NYST15PO4 TP; OMEP40CA21 GT; ONDA8TAB65 GT; POLY17PO4 GT; PROM6.256 GT; SUCR1ORA4 GT; TIZA4TAB5 GT
[2022-01-06] MEDS ORDERED: LORAZEPAM 2 MG/1 ML VIAL IV ONE ×3 (18:15→23:30)
--- NOTE | 2022-01-06 19:03 | NUR ---
Pt has a lot of severe anxiety history. Endorsed Ativan orders to [facility].
[2022-01-06 19:21] LABS: HEMATOCRIT 32.7 % (36.7-47.1); MEAN CORPUSCULAR HEMOGLOBIN 31.2 uug (23.8-33.4); MEAN CORPUSCULAR VOLUME 95.7 fL (73.0-96.2); PLATELET COUNT (AUTO) 258 K/uL (152-348)
[2022-01-06 19:36] LABS: ALANINE AMINOTRANSFERASE 77 U/L (16-63); ALKALINE PHOSPHATASE 68 U/L (50-136); ASPARTATE AMINOTRANSFERASE 66 U/L (15-37); BILIRUBIN,DIRECT 0.1 mg/dL (0.0-0.2); BILIRUBIN,TOTAL 0.9 mg/dL (0.2-1.0); CARBON DIOXIDE 32 mmol/L (21-32); CHLORIDE 100 mmol/L (98-107); CREATININE 0.9 mg/dL (0.6-1.3); GLUCOSE 136 mg/dL (74-106); TOTAL PROTEIN, SERUM 7.7 g/dL (6.4-8.2); UREA NITROGEN, BLOOD 12 mg/dL (7-18)
--- NOTE | 2022-01-06 19:40 | NUR ---
report to Rach REYES
[2022-01-06] MEDS ORDERED: IV NS 1000 ML 1,000 ML IV ONE (19:45)
[2022-01-06] MEDS ORDERED: ACETAMINOPHEN 650 MG SUPP.RECT RC ONE ×2 (19:45→20:12)
[2022-01-06] MEDS ORDERED: CEFEPIME HCL 2 G in IV DEXTROSE 5% 100 ML IV ONE (19:45)
[2022-01-06] MEDS ORDERED: CEFEPIME HCL 1 G VIAL ONE ×2 (20:12→20:13)
--- NOTE | 2022-01-06 20:33 | NUR ---
IVF AND ABT INFUSING AND TYLENOL SUPP 650 MG CO ADM.
--- NOTE | 2022-01-06 22:32 | NUR ---
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
--- NOTE | 2022-01-06 22:55 | NUR ---
Dr Richard spoke with Dr Keenan who accept patient.
[2022-01-06] MEDS ORDERED: IV NORMAL SALINE 500 ML IV ONE (23:15)
[2022-01-06] MEDS ORDERED: METOPROLOL TARTRATE 50 MG TABLET GT ONE (23:15)
[2022-01-06] MEDS ORDERED: LORAZEPAM 2 MG/1 ML VIAL ONE (23:24)
--- NOTE | 2022-01-06 23:30 | NUR ---
AGITATED, MED WITH ATIVAN 1 MG AND NEW ADMIT ORDERS NOTED, IVF NS 500 ML BOLUS AND LOPRESSOR GIVEN.
--- NOTE | 2022-01-07 | NUR ---
REPORT GIVEN TO RN ASSUMING CARE, PATIENT ADMITTED, LOPRESSOR NOT GIVEN, PER RN WILL GIVE ON UNIT.
--- NOTE | 2022-01-07 00:10 | NUR ---
Patient transfered to 3rd floor via hospital bed
--- NOTE | 2022-01-07 00:20 | NUR ---
ADMITTED THIS 26 Y.O.MALE WITH CEREBRAL PALSY AND QUAD, HE IS VERY RESTLESS AND AGITATED.OXYGEN [id number]% VIA NON REBREATHER MASK, VITAL SIGNS TAKEN AND RECORDED, REPOSITIONED FOR COMFORT, GT TUBE IN PLACE AND PATENT, SKIN WARM .ADMISSION ORDERS CARRIED OUT, .
[2022-01-07] MEDS: METRONIDAZOLE 500 MG/NS 100ML 500 MG in PREMIXED 1 EACH IV SCH ×4 (01:00→21:14)
[2022-01-07] MEDS ORDERED: CEFEPIME HCL 1 G VIAL ONE (01:20)
[2022-01-07] MEDS: BACLOFEN 20 MG TABLET GT SCH ×5 (02:28→23:40)
[2022-01-07] MEDS: CLONAZEPAM 1 MG TABLET GT SCH ×4 (02:30→17:39)
[2022-01-07] MEDS: TIZANIDINE HCL 4 MG TABLET GT PRN (02:32)
[2022-01-07] MEDS: ACETAMINOPHEN 650 MG/20.3 ML LIQUID UDC GT PRN ×3 (02:34→23:39)
[2022-01-07] MEDS: IV NS 1000 ML 1,000 ML IV PRN ×2 (02:36→20:14)
[2022-01-07] MEDS: MORPHINE SULFATE 2 MG/1 ML DISP.SYRIN IV PRN ×2 (02:46→10:12)
[2022-01-07 04:00] VITALS: BP 113/65
--- NOTE | 2022-01-07 05:13 | NUR ---
DETENTION ASSESSMENT DONE, DANIEL CATH DRAINING WELL TO KRYSTYNA URINE, FOR CT ABDOMEN W/O CONTRAST,PT REMAINS NON VERBAL, HE IS DNR/DNI.CONTINUES TO THRASH IN BED,VERY SPASTIC, DUE MEDS GIVEN VIA G TUBE AND TOLERARED IT WELL. TEMP OF UNKNOWN ORIGIN, STILL AT 100.3, ICE PACKS APPLIED TO GROIN AND AND AXILLARY AREAS.TYLENOL GIVEN VIA G TUBE.SOFT RESTRAINTS ON LEFT HAND, CONSTANTLY TRING TO REMOVE OXYGEN AND IV TUBINGS.
--- NOTE | 2022-01-07 05:24 | NUR ---
AM CARE RENDERED,MONITORED FOR SAFETY, ON TELE 112. SLEPT ON AND OFF. KEPT DRY AND CLEAN.
[2022-01-07] MEDS: CEFEPIME HCL 1 G in IV DEXTROSE 5% 50 ML IV SCH ×3 (06:00→21:15)
[2022-01-07 07:19] LABS: HEMATOCRIT 35.4 % (36.7-47.1); MEAN CORPUSCULAR HEMOGLOBIN 31.8 uug (23.8-33.4); MEAN CORPUSCULAR VOLUME 95.4 fL (73.0-96.2); PLATELET COUNT (AUTO) 326 K/uL (152-348)
[2022-01-07 07:24] LABS: BILIRUBIN,TOTAL 0.9 mg/dL (0.2-1.0); CREATININE 0.9 mg/dL (0.6-1.3); PHOSPHOROUS 2.2 mg/dL (2.5-4.9); POTASSIUM 3.5 mmol/L (3.5-5.1)
[2022-01-07 07:26] LABS: *BILIRUBIN,URIN NEGATIVE (NEGATIVE); *BLOOD, URINE NEGATIVE (NEGATIVE); *CLARITY,URINE CLEAR (CLEAR); *COLOR,URINE YELLOW (YELLOW); *KETONES,URINE 3+ (NEGATIVE); *UROBILINOGEN,URINE 0.2 E.U./dl (NORMAL); LEUKOCYTE ESTERASE ,URINE NEGATIVE (NEGATIVE); NITRITE, URINE NEGATIVE (NEGATIVE); PH,URINE 5.5 (5.0-8.0); UGLUCOSE NEGATIVE (NEGATIVE)
--- NOTE | 2022-01-07 08:00 | NUR ---
Patient received in bed, thrashing. Patient is non verbal on non rebreather mask at 15 L O2. LEft jugular #[address], running IV ABX, downstream occlusion noted. Unable to flush line due to resistance. Patient is a hard stick and will need midline . GT in place, patent and intact. No GT feeding at this time. patient is contracted to both upper and lower extremities. Patient noted to be diaphoretic, per night order selector patent is febrile, blood cultures have been collected by lab. Bilateral soft wrist restraints removed, skin is intact, patient tolerates restraints. Safety measures initiated.
[2022-01-07] MEDS: hydrOXYzine HCL 25 MG TABLET GT SCH ×3 (08:30→17:39)
[2022-01-07] MEDS: levETIRAcetam 500 MG/5 ML LIQUID UDC GT SCH ×2 (08:30→17:40)
--- NOTE | 2022-01-07 08:40 | NUR ---
Bed bath provided and cooling measures initiated, patient has a temp of 104 and is in distress. O2 sats are 100% on non rebreather mask at 15L O2. Noted with grunting with breaths. Patient medication administered including Tylenol for fever control. Dr. Brown at bedside, made aware of patient status including elevated temp. Dr. Simmons also at bedside.
[2022-01-07] MEDS ORDERED: IV NORMAL SALINE 250 ML IV ONE (09:38)
[2022-01-07] MEDS ORDERED: SWABABLE VALVE TRANSFER SET EA MC ONE (09:38)
[2022-01-07] MEDS ORDERED: IOHEXOL 350 100 ML INFUS..BTL ONE (09:39)
[2022-01-07] MEDS: GLYCOPYRROLATE 1 MG TABLET GT SCH ×3 (10:11→17:39)
[2022-01-07] MEDS: NYSTATIN POWDER 15 GM BOTTLE TP SCH ×2 (10:11→17:39)
[2022-01-07] MEDS: MIRALAX 17 GM POWD.PACK GT SCH ×2 (10:12→17:39)
--- NOTE | 2022-01-07 10:12 | NUR ---
Morphine IV pulled from [facility] earlier today but provided till now due to there being no IV access.
--- NOTE | 2022-01-07 11:00 | NUR ---
Left jugular IV is non patent, line removed and noted to be pulled and kicked. Able to dress site without any bleeding from site, light pressure provided to site. Midline orders received and midline nurse able to start line to left upper arm. Site secured with coban. patient tolerated procedure well.
[2022-01-07 11:50] VITALS: BP 94/52
--- NOTE | 2022-01-07 13:45 | NUR ---
Patient taken to CT of ABD/ pelvis with contrast. Mother, April, provided telephone consent, 2 nurse verification use completed for telephone consent.
--- NOTE | 2022-01-07 15:00 | NUR ---
Patient returned from CT, Flagyl and Maxepine will be late administered due to patient being out of unit. Patient tolerated CT well.
[2022-01-07 15:50] VITALS: BP 111/60
[2022-01-07] MEDS ORDERED: NEUTRA PHOS PACKET GT ONE ×2 (16:00→18:00)
--- NOTE | 2022-01-07 18:35 | NUR ---
Patient sleeping intermittently, telemetry is improving and HR in the 80's during this shift. Patient HR is back to 90-100 at this time. Patient temperature improved and is now afebrile. Cooling measures effective as well as Tylenol. Suctioning provided to clear airway, thick white secretions noted.
[2022-01-07 20:00] VITALS: BP 120/74
--- NOTE | 2022-01-07 20:00 | NUR ---
patient in bed sleeping , no s/s of respiratory distress , breathing even and unlabored , f/c to bsd and ivf in progress via the left midline .
[2022-01-07] MEDS: TIZANIDINE HCL 4 MG TABLET GT SCH (20:39)
--- NOTE | 2022-01-07 23:48 | NUR ---
Tylenol given via the peg c/o temp 101.4 F rectally .
[2022-01-08 04:32] VITALS: BP 92/40
[2022-01-08] MEDS: CEFEPIME HCL 1 G in IV DEXTROSE 5% 50 ML IV SCH ×3 (05:57→22:00)
[2022-01-08] MEDS: TIZANIDINE HCL 4 MG TABLET GT PRN ×2 (05:57→13:28)
[2022-01-08] MEDS: BACLOFEN 20 MG TABLET GT SCH ×3 (05:57→17:43)
[2022-01-08] MEDS: METRONIDAZOLE 500 MG/NS 100ML 500 MG in PREMIXED 1 EACH IV SCH (05:58)
[2022-01-08 08:12] LABS: ALANINE AMINOTRANSFERASE 43 U/L (16-63); ALKALINE PHOSPHATASE 36 U/L (50-136); ASPARTATE AMINOTRANSFERASE 45 U/L (15-37); BILIRUBIN,DIRECT 0.1 mg/dL (0.0-0.2); BILIRUBIN,TOTAL 0.5 mg/dL (0.2-1.0); CARBON DIOXIDE 26 mmol/L (21-32); CHLORIDE 108 mmol/L (98-107); CREATINE KINASE, TOTAL 300 U/L (39-308); CREATININE 0.6 mg/dL (0.6-1.3); GLUCOSE 104 mg/dL (74-106); MAGNESIUM 2.1 mg/dL (1.8-2.4); PHOSPHOROUS 2.6 mg/dL (2.5-4.9); POTASSIUM 3.3 mmol/L (3.5-5.1); TOTAL PROTEIN, SERUM 4.7 g/dL (6.4-8.2); UREA NITROGEN, BLOOD 15 mg/dL (7-18)
[2022-01-08] MEDS: levETIRAcetam 500 MG/5 ML LIQUID UDC GT SCH ×2 (08:22→17:43)
[2022-01-08] MEDS: MIRALAX 17 GM POWD.PACK GT SCH ×2 (08:23→15:30)
[2022-01-08] MEDS: CLONAZEPAM 1 MG TABLET GT SCH ×3 (08:23→17:43)
[2022-01-08] MEDS: hydrOXYzine HCL 25 MG TABLET GT SCH ×3 (08:23→17:43)
[2022-01-08] MEDS: NYSTATIN POWDER 15 GM BOTTLE TP SCH ×2 (08:24→15:31)
[2022-01-08] MEDS: IV NS 1000 ML 1,000 ML IV PRN (08:24)
[2022-01-08] MEDS: GLYCOPYRROLATE 1 MG TABLET GT SCH ×3 (08:26→17:47)
--- NOTE | 2022-01-08 08:29 | NUR ---
SEEN BY DR MELO FOR FOLLOW-UP, SEE NOTES
[2022-01-08 08:32] LABS: HEMATOCRIT 27.2 % (36.7-47.1); MEAN CORPUSCULAR VOLUME 97.4 fL (73.0-96.2); PLATELET COUNT (AUTO) 179 K/uL (152-348)
[2022-01-08] MEDS ORDERED: POTASSIUM CHLORIDE 20 MEQ POWDER PACKET GT ONE (10:00)
[2022-01-08 12:00] VITALS: BP 106/55
--- NOTE | 2022-01-08 12:20 | NUR ---
COMPLETE BED BATH GIVEN, TEMP 99.0 RECTALLY, REQUIRES FREQUENT ORAL SUCTIONING. GOOD ORAL CARE DONE FOR MINIMAL THIN ORAL SECRETION
[2022-01-08] MEDS: METRONIDAZOLE 500 MG TABLET GT SCH ×2 (13:15→21:11)
--- NOTE | 2022-01-08 15:35 | NUR ---
NO ACUTE CHANGE FROM MORNING ASSESSMENTS. ST ON MONITOR 105-110
[2022-01-08 16:00] VITALS: BP 98/46
[2022-01-08 20:12] VITALS: BP 100/53
--- NOTE | 2022-01-08 21:00 | NUR ---
RECEIVED REPORT FROM AM NURSE SADIE PT IS ALERT AND IS DNR DNI PT IS CONTRACTED IN BOTH UPPER AND LOWER EXTREMIES PT HAS HAD TEMPERATURE PT HASN'T HAD A STOOL FOR PT IS NPO WITH DANIEL DRAINING CLEAR YELLOW URINE PT HAS A LEFT HAND MITTEN TOLERATING WELL. PT HAS A HX OF ANXIETY,KCT ABD AND CERBRAL PALSY.
[2022-01-08] MEDS: TIZANIDINE HCL 4 MG TABLET GT SCH (21:12)
[2022-01-08] MEDS: MORPHINE SULFATE 2 MG/1 ML DISP.SYRIN IV PRN (21:19)
[2022-01-08] MEDS ORDERED: METRONIDAZOLE 500 MG TABLET GT SCH (22:00)
[2022-01-09] VITALS: BP 103/57
[2022-01-09] MEDS: MORPHINE SULFATE 2 MG/1 ML DISP.SYRIN IV PRN (03:23)
[2022-01-09] MEDS: IV NS 1000 ML 1,000 ML IV PRN ×2 (03:43→09:32)
[2022-01-09 04:00] VITALS: BP 125/60
--- NOTE | 2022-01-09 05:39 | NUR ---
NO CHANGES WITH PATIENT THROUGHOUT SHIFT WAS GIVEN MORPHNE FOR PAIN.
[2022-01-09] MEDS: BACLOFEN 20 MG TABLET GT SCH ×4 (06:24→17:10)
[2022-01-09] MEDS: METRONIDAZOLE 500 MG TABLET GT SCH ×3 (06:24→22:14)
[2022-01-09] MEDS: TIZANIDINE HCL 4 MG TABLET GT PRN ×2 (06:25→12:42)
[2022-01-09 07:29] LABS: HEMATOCRIT 31.7 % (36.7-47.1); MEAN CORPUSCULAR HEMOGLOBIN 32.8 uug (23.8-33.4); MEAN CORPUSCULAR VOLUME 96.4 fL (73.0-96.2); PLATELET COUNT (AUTO) 262 K/uL (152-348)
[2022-01-09 07:33] LABS: CARBON DIOXIDE 26 mmol/L (21-32); CHLORIDE 104 mmol/L (98-107); CREATININE 0.6 mg/dL (0.6-1.3); GLUCOSE 79 mg/dL (74-106); MAGNESIUM 1.9 mg/dL (1.8-2.4); PHOSPHOROUS 1.3 mg/dL (2.5-4.9); POTASSIUM 3.6 mmol/L (3.5-5.1); UREA NITROGEN, BLOOD 6 mg/dL (7-18)
[2022-01-09] MEDS: CEFEPIME HCL 1 G in IV DEXTROSE 5% 50 ML IV SCH ×3 (08:06→22:12)
[2022-01-09] MEDS: levETIRAcetam 500 MG/5 ML LIQUID UDC GT SCH ×2 (08:45→17:09)
[2022-01-09] MEDS: hydrOXYzine HCL 25 MG TABLET GT SCH ×3 (08:45→17:09)
[2022-01-09] MEDS: CLONAZEPAM 1 MG TABLET GT SCH ×3 (08:46→17:10)
[2022-01-09] MEDS: MIRALAX 17 GM POWD.PACK GT SCH ×2 (08:46→15:47)
[2022-01-09] MEDS: NYSTATIN POWDER 15 GM BOTTLE TP SCH ×2 (08:47→15:47)
[2022-01-09] MEDS: GLYCOPYRROLATE 1 MG TABLET GT SCH ×3 (08:49→17:10)
--- NOTE | 2022-01-09 09:30 | NUR ---
SEEN BY DR ALVAREZ FOR FOLLOW-UP SEE NOTES. TEMP 100.3 RECTALLY. COOLING MEASURES DONE
[2022-01-09 11:08] VITALS: BP 108/89
[2022-01-09 14:52] VITALS: BP 95/41
[2022-01-09] MEDS: JEVITY 1.2 1000 ML LIQUID GT PRN (15:11)
[2022-01-09] MEDS ORDERED: POTASSIUM PHOSPHATE MM 15 MMOL in IV NORMAL SALINE 250 ML IV ONE (16:00)
[2022-01-09] MEDS ORDERED: SODIUM PHOSPHATE MM 15 MMOL in IV NORMAL SALINE 250 ML IV ONE (16:00)
[2022-01-09 20:00] VITALS: BP 113/61
--- NOTE | 2022-01-09 20:00 | NUR ---
Patient GTF increased to 20cc tolerate well no n/v no diarrhea noted, cont to monitor.
--- NOTE | 2022-01-09 20:00 | NUR ---
Patient asleep but arousable, no sob no chest pain, on 3 liters NC sat wnl. Patient has no s/s of pain at this time, calm, brooks cath patent draining with yellow color urine in moderate amount. cont to monitor.
[2022-01-09] MEDS: TIZANIDINE HCL 4 MG TABLET GT SCH (20:31)
--- NOTE | 2022-01-10 | NUR ---
Patient GT increased to 30cc/hr tolerate well, no residual noted, no n/v no diarrhea noted, cont to monitor.
[2022-01-10] MEDS: BACLOFEN 20 MG TABLET GT SCH ×4 (01:06→17:33)
[2022-01-10] MEDS: MORPHINE SULFATE 2 MG/1 ML DISP.SYRIN IV PRN (03:13)
--- NOTE | 2022-01-10 03:21 | NUR ---
Patient restless, suctioned patient with whitish color saliva in small amount obtained, diaper clean, given Morphine 2mg iv for pain and comfort. cont to monitor.
[2022-01-10 04:00] VITALS: BP 110/65
[2022-01-10] MEDS: IV NS 1000 ML 1,000 ML IV PRN ×2 (04:06→17:43)
[2022-01-10] MEDS: CEFEPIME HCL 1 G in IV DEXTROSE 5% 50 ML IV SCH ×3 (05:19→21:50)
[2022-01-10] MEDS: METRONIDAZOLE 500 MG TABLET GT SCH ×3 (05:19→21:09)
[2022-01-10 06:18] LABS: CARBON DIOXIDE 28 mmol/L (21-32); CHLORIDE 103 mmol/L (98-107); CREATININE 0.5 mg/dL (0.6-1.3); GLUCOSE 108 mg/dL (74-106); MAGNESIUM 1.9 mg/dL (1.8-2.4); PHOSPHOROUS 2.1 mg/dL (2.5-4.9); POTASSIUM 3.5 mmol/L (3.5-5.1); UREA NITROGEN, BLOOD 5 mg/dL (7-18)
[2022-01-10 06:26] LABS: HEMATOCRIT 34.4 % (36.7-47.1); MEAN CORPUSCULAR HEMOGLOBIN 31.9 uug (23.8-33.4); MEAN CORPUSCULAR VOLUME 95.9 fL (73.0-96.2); PLATELET COUNT (AUTO) 163 K/uL (152-348)
[2022-01-10] MEDS: levETIRAcetam 500 MG/5 ML LIQUID UDC GT SCH ×2 (08:42→17:32)
[2022-01-10] MEDS: CLONAZEPAM 1 MG TABLET GT SCH ×3 (08:42→17:32)
[2022-01-10] MEDS: MIRALAX 17 GM POWD.PACK GT SCH ×2 (08:42→17:33)
[2022-01-10] MEDS: hydrOXYzine HCL 25 MG TABLET GT SCH ×3 (08:43→17:32)
[2022-01-10] MEDS: NYSTATIN POWDER 15 GM BOTTLE TP SCH ×2 (08:44→17:37)
[2022-01-10] MEDS: GLYCOPYRROLATE 1 MG TABLET GT SCH ×3 (08:48→17:34)
--- NOTE | 2022-01-10 11:30 | NUR ---
Decreased feeding rate to 30cc/hr, pt had episode of spitting up during coughing. Suctioned immediately. No residual volume noted. Held feeding for one hr post episode.
--- NOTE | 2022-01-10 12:03 | NUR ---
Pt is calm in bed, no sign of desaturation noted, under close observation and suctioning as needed. will increase feeding rate as tolerated by 10cc every 4hrs with goal of 55cc/hr.
[2022-01-10 13:11] VITALS: BP 106/62
[2022-01-10 16:33] VITALS: BP 111/58
[2022-01-10] MEDS ORDERED: SODIUM PHOSPHATE MM 15 MMOL in IV NORMAL SALINE 250 ML IV ONE (17:00)
[2022-01-10] MEDS: TIZANIDINE HCL 4 MG TABLET GT SCH (21:09)
[2022-01-11] MEDS: BACLOFEN 20 MG TABLET GT SCH ×4 (00:21→17:02)
--- NOTE | 2022-01-11 03:00 | NUR ---
Increased secretions noted. Oral suctioning done as needed. Will continue to monitor.
[2022-01-11] MEDS: METRONIDAZOLE 500 MG TABLET GT SCH ×3 (05:33→22:00)
[2022-01-11] MEDS: CEFEPIME HCL 1 G in IV DEXTROSE 5% 50 ML IV SCH (05:33)
--- NOTE | 2022-01-11 08:00 | NUR ---
awake but non verbal, on 3l/nc 02, suctoioned of thin secretions orally with yankeur, repositioned and kept head of bed elevated but moves constantly in a horizontal position in bed, contracted and has muscular spasticity, GT clamped- checked for residual- none obtained, meds given and feeding started at 40ml/hr, safety measures maintained
[2022-01-11] MEDS: levETIRAcetam 500 MG/5 ML LIQUID UDC GT SCH ×2 (08:43→17:01)
[2022-01-11] MEDS: hydrOXYzine HCL 25 MG TABLET GT SCH ×3 (08:45→17:02)
[2022-01-11] MEDS: CLONAZEPAM 1 MG TABLET GT SCH ×3 (08:45→17:02)
[2022-01-11] MEDS: MIRALAX 17 GM POWD.PACK GT SCH ×2 (08:45→17:00)
[2022-01-11] MEDS: GLYCOPYRROLATE 1 MG TABLET GT SCH ×3 (08:46→17:02)
[2022-01-11] MEDS: NYSTATIN POWDER 15 GM BOTTLE TP SCH ×2 (08:47→17:02)
[2022-01-11 11:48] VITALS: BP 103/67
--- NOTE | 2022-01-11 12:00 | NUR ---
incontinent of brownish yellowish stool, full bath in bed given and repositioned to left side, no distress noted, checked residual- obtained 20ml, tube fdg at 40ml/hr, kept head of bed, slept after bath, remains on 3l/nc 02
--- NOTE | 2022-01-11 12:59 | NUR ---
seen by Dr Regan
[2022-01-11] MEDS: IV NS 1000 ML 1,000 ML IV PRN (13:03)
[2022-01-11 16:10] VITALS: BP 118/69
--- NOTE | 2022-01-11 18:05 | NUR ---
no distress noted, remains on 1-2l/nc sat at 96%, tube feeding at 50ml/hr- no residual noted at 1600, repositioned several times and suctioned frequently, all needs attended and met, safety measures in place
[2022-01-11 20:00] VITALS: BP 119/68
[2022-01-11] MEDS: TIZANIDINE HCL 4 MG TABLET GT SCH (20:37)
[2022-01-11] MEDS: ACETAMINOPHEN 650 MG/20.3 ML LIQUID UDC GT PRN (20:38)
[2022-01-12] MEDS: BACLOFEN 20 MG TABLET GT SCH ×3 (00:12→12:19)
[2022-01-12 04:00] VITALS: BP 108/65
--- NOTE | 2022-01-12 06:02 | NUR ---
Patient rested well in between care; no acute distress; aspiration precaution observed. repositioned as needed.
[2022-01-12] MEDS: METRONIDAZOLE 500 MG TABLET GT SCH ×2 (06:17→13:41)
[2022-01-12 06:47] LABS: HEMATOCRIT 32.4 % (36.7-47.1); MEAN CORPUSCULAR VOLUME 95.7 fL (73.0-96.2); PLATELET COUNT (AUTO) 281 K/uL (152-348)
[2022-01-12 07:07] LABS: CARBON DIOXIDE 30 mmol/L (21-32); CHLORIDE 103 mmol/L (98-107); CREATININE 0.6 mg/dL (0.6-1.3); GLUCOSE 102 mg/dL (74-106); POTASSIUM 3.6 mmol/L (3.5-5.1); UREA NITROGEN, BLOOD 5 mg/dL (7-18)
[2022-01-12] MEDS: NYSTATIN POWDER 15 GM BOTTLE TP SCH (09:00)
[2022-01-12] MEDS ORDERED: METR500T GT (09:03)
[2022-01-12] MEDS ORDERED: LACT-209 GT (09:03)
[2022-01-12] MEDS: GLYCOPYRROLATE 1 MG TABLET GT SCH ×2 (09:46→13:40)
[2022-01-12] MEDS: MIRALAX 17 GM POWD.PACK GT SCH (09:46)
[2022-01-12] MEDS: levETIRAcetam 500 MG/5 ML LIQUID UDC GT SCH (09:46)
[2022-01-12] MEDS: CLONAZEPAM 1 MG TABLET GT SCH ×2 (09:46→13:41)
[2022-01-12] MEDS: hydrOXYzine HCL 25 MG TABLET GT SCH ×2 (09:47→13:41)
[2022-01-12] MEDS: JEVITY 1.2 1000 ML LIQUID GT PRN (11:23)
[2022-01-12 12:00] VITALS: BP 125/77
--- NOTE | 2022-01-12 13:00 | NUR ---
No distress noted, patient was sleeping, had some mucus, suctioned him a few times. O2 sat 96-98 on 2 L
[2022-01-12 16:18] VITALS: BP 113/71
== END 2022-01-12 17:30 | DRG 720 ==
LOC: ER 18:05 → TELE3 23:10 → MEDSURG3 01-09 09:25
PROVIDERS: ADMIT Internal Medicine; ATTEND Internal Medicine
PROC: B547ZZA Ultrasonography of Left Subclavian Vein, Guidance (ICD-10-PCS; principal; 2022-01-07)
PROC: 05H633Z Insertion of Infusion Device into Left Subclavian Vein, Percutaneous Approach (ICD-10-PCS; principal; 2022-01-07)
DX: A41.9 Sepsis, unspecified organism (principal); J96.01 Acute respiratory failure with hypoxia; G93.41 Metabolic encephalopathy; N17.9 Acute kidney failure, unspecified; F73 Profound intellectual disabilities; E88.09 Other disorders of plasma-protein metabolism, not elsewhere classified; M62.82 Rhabdomyolysis; G80.0 Spastic quadriplegic cerebral palsy; E11.9 Type 2 diabetes mellitus without complications; E87.6 Hypokalemia; Z66 Do not resuscitate; G40.909 Epilepsy, unspecified, not intractable, without status epilepticus; Z93.1 Gastrostomy status; K52.9 Noninfective gastroenteritis and colitis, unspecified; K44.9 Diaphragmatic hernia without obstruction or gangrene; Z88.1 Allergy status to other antibiotic agents; B36.8 Other specified superficial mycoses; D64.9 Anemia, unspecified; R74.8 Abnormal levels of other serum enzymes; K21.9 Gastro-esophageal reflux disease without esophagitis; R65.20 Severe sepsis without septic shock
CPT/HCPCS: 36415; 71045; 71250; 83605; 83735; 84100; 84484; 85025; 87040; 87086; 93005; G0378; J0692; J2060; J2270; J3490; J7040; Q9967